=== PATIENT | female | born 1965 | race African-American/Black ===

== ENCOUNTER 2020-11-09 19:31 | Emergency (ER) | payer SELFPAY ==
[~2020-11-09] VITALS: Ht 165.1 cm; Wt 50.0 kg
[2020-11-09] MEDS ORDERED: SODIUM CHLORIDE 0.9% 1,000 ML IV ONE (20:30)
[2020-11-09] MEDS ORDERED: ZIPRASIDONE MESYLATE 20MG/VIAL IM ONE (22:30)
[2020-11-10 00:40] LABS: CLARITY URINE CLEAR (CLEAR); COLOR URINE YELLOW (YELLOW); KETONES URINE NEGATIVE (NEGATIVE); LEUKOCYTE ESTERASE URINE NEGATIVE (NEGATIVE); NITRITE URINE NEGATIVE (NEGATIVE); OCCULT BLOOD URINE NEGATIVE (NEGATIVE); PROTEIN URINE NEGATIVE (NEGATIVE); SPECIFIC GRAVITY URINE 1.019 (1.005-1.030)
[2020-11-10 00:52] LABS: *AMPHETAMINES SCREEN URINE NEGATIVE (NEGATIVE)
[2020-11-10 00:54] LABS: *BARBITURATES SCREEN URINE NEGATIVE (NEGATIVE); *BENZODIAZEPINES SCREEN URINE NEGATIVE (NEGATIVE); *COCAINE SCREEN URINE PRESUMTIVE POSITIVE (NEGATIVE); CANNABINOID URINE SCREEN PRESUMTIVE POSITIVE (NEGATIVE); METHADONE URINE SCREEN NEGATIVE (NEGATIVE); OPIATES URINE SCREEN NEGATIVE (NEGATIVE); PHENCYCLIDINE URINE SCREEN NEGATIVE (NEGATIVE)
[2020-11-10 02:39] LABS: BASOPHILS % 0.7 % (0.0-2.0); EOSINOPHILS % 4.4 % (0.0-5.0); HEMATOCRIT. 46.2 % (36.0-48.0); HEMOGLOBIN. 15.8 g/dL (12.0-16.0); LYMPHOCYTES % 33.5 % (20.0-50.0); MEAN CORPUSCULAR VOLUME 87.6 fL (81.0-99.0); MEAN PLATELET VOLUME 7.3 fl (7.4-10.4); MONOCYTES % 6.6 % (2.0-8.0); NEUTROPHILS % 54.8 % (40.0-76.0); PLATELET 287 x1000/uL (130-400); RED BLOOD CELL COUNT 5.27 mill/uL (4.2-5.4); RED CELL DISTRIBUTION WIDTH 14.6 % (11.6-14.6)
[2020-11-10 02:47] LABS: CHLORIDE 110 mEq/L (98-107)
[2020-11-10 02:52] LABS: ETHANOL BLOOD < 10 mg/dL
[2020-11-10 02:53] LABS: HCG SCREEN NEGATIVE
[2020-11-10 02:55] LABS: CREATINE KINASE 166 IU/L (26-192)
[2020-11-10 05:45] VITALS: BP 143/71
== END 2020-11-10 05:52 | disposition home or self-care (01) ==
LOC: ER 19:31 → EDBD 19:31 → ER 11-10 05:52
DX: F14.129 Cocaine abuse with intoxication, unspecified (principal); R53.1 Weakness
CPT/HCPCS: 36415; 70450; 71045; 80053; 80305; 80307; 80320; 80329; 81003; 82140; 82550; 83690; 84703; 85025; 93005; 96372; 99285; J3486; Z7610; G0480